=== PATIENT | male | born 1980 ===

== ENCOUNTER 2017-02-11 02:55 | Outpatient (CLI) | payer OTHER | END 2017-02-11 02:56 | disposition home or self-care (01) | LOC: LAB.R 02:55 | PROVIDERS: ATTEND Family Medicine | DX: L08.9 Local infection of the skin and subcutaneous tissue, unspecified (principal) | CPT/HCPCS: 87070; 87205 ==

== ENCOUNTER 2017-02-24 15:09 | Outpatient (CLI) | payer OTHER | END 2017-02-24 15:10 | disposition home or self-care (01) | LOC: LAB.R 15:09 | PROVIDERS: ATTEND Physician Assistant Medical | DX: B99.9 Unspecified infectious disease (principal); A49.02 Methicillin resistant Staphylococcus aureus infection, unspecified site | CPT/HCPCS: 87070; 87205; 87640 ==